=== PATIENT | female | born 1965 | race Caucasian/White ===

== ENCOUNTER 2018-09-07 09:14 | Day surgery (SDC) | payer OTHER ==
[2018-09-07] MEDS ORDERED: LACTATED RINGERS 1,000 ML IV ONE (09:36)
[2018-09-07] MEDS ORDERED: MIDAZOLAM 2 MG/2 ML VIAL IVP ONE (11:15)
[2018-09-07] MEDS ORDERED: fentaNYL 250 MCG/5 ML VIAL IVP ONE (11:15)
[2018-09-07 11:49] VITALS: BP 110/72
== END 2018-09-07 09:15 | disposition home or self-care (01) ==
LOC: SDS 09:14
PROVIDERS: ATTEND Surgery
PROC: 0DJD8ZZ Inspection of Lower Intestinal Tract, Via Natural or Artificial Opening Endoscopic (ICD-10-PCS; principal; 2018-09-07 10:45)
DX: Z12.11 Encounter for screening for malignant neoplasm of colon (principal); K64.8 Other hemorrhoids
CPT/HCPCS: 45378; J3010; J7120

== ENCOUNTER 2019-04-06 15:13 | Outpatient (CLI) | payer OTHER ==
--- NOTE | 2019-04-09 10:22 | Mammography Report ---
Reason: SCREENING MAMMO Procedure Date: 04/06/2019 Accession Number: [id number] / [id number] Procedure: MGN - Screening Mammo Dig Bilat CPT Code: FULL RESULT: EXAM: Screening Mammo Dig Bilat DATE: 04/06/2019 3:45 PM CLINICAL HISTORY: Screening encounter. History of late childbearing. TECHNIQUE: (B) - Bilateral CC and MLO views were obtained. COMPARISON: 02/18/2018 through 11/26/2016. PARENCHYMAL PATTERN: (A) - The breast(s) demonstrate(s) scattered fibroglandular densities. FINDINGS: There are no suspicious masses, calcifications, or areas of distortion. IMPRESSION: Negative examination. BI-RADS category 1. RECOMMENDATION: (ANNUAL) - Recommend routine annual screening mammography. BI-RADS CATEGORY: (1) - Negative. STANDARD QUALIFYING STATEMENTS: 1. This examination was not reviewed with the aid of Computer-Aided Detection (CAD). 2. A negative or benign imaging report should not preclude biopsy if clinically suspicious findings are present. 3. Dense breasts may obscure an underlying neoplasm. 4. This examination was reviewed without the aid of 3D breast imaging (tomosynthesis).
== END 2019-04-06 15:14 | disposition home or self-care (01) ==
LOC: DI.N 15:13
DX: Z12.31 Encounter for screening mammogram for malignant neoplasm of breast (principal)
CPT/HCPCS: 77067

== ENCOUNTER 2020-10-25 14:25 | Outpatient (CLI) | payer OTHER ==
--- NOTE | 2020-10-26 12:20 | Mammography Report ---
BILATERAL DIGITAL SCREENING MAMMOGRAM 3D/2D: 10/25/2020 CLINICAL: Routine screening. Comparison is made to exams dated: 04/06/2019 mammogram - [facility], 02/18/2018 ma mmogram, and 11/26/2016 mammogram - [facility]. There are scattered fibroglandular [place] ents in both breasts. No significant masses, calcifications, or other findings are seen in either breast. There has been no significant interval change. IMPRESSION: NEGATIVE There is no mammographic evidence of malignancy. A 1 year screening mammogram is recommended. This exam was interpreted at Station ID: [id number]. NOTE: For mammograms, a report in lay terms will be sent to the patient. Approximately 15% of breast malignancies will not be visualized mammographically. In the management of a palpable breast mass, a negative mammogram must not discourage biopsy of a clinically suspicious lesion. Electronically Signed By: Rubén Coronado M.D. aty/penrad:10/25/2020 15:03:52 ACR BI-RADS Category 1: Negative 3341F PARENCHYMAL PATTERN: (A) - The breast(s) demonstrate(s) scattered fibroglandular densities. BI-RADS CATEGORY: (1) - 1 RECOMMENDATION: (ANNUAL) - Recommend routine annual screening mammography. [id number] 1 year screening LATERALITY: (B)
== END 2020-10-25 14:26 | disposition home or self-care (01) ==
LOC: DI.N 14:25
DX: Z12.31 Encounter for screening mammogram for malignant neoplasm of breast (principal)

== ENCOUNTER 2022-09-19 16:30 | Outpatient (CLI) | payer OTHER ==
--- NOTE | 2022-09-20 09:26 | XRAY Report ---
PROCEDURE: Finger(s) LT INDICATIONS: CONTUSION OF LEFT LITTLE FINGER WITHOUT DAMAGE TO TECHNIQUE: AP hand, 2 views of the left fifth finger(s) acquired. COMPARISON: None FINDINGS: Bones: No fractures or dislocations. No suspicious bony lesions. Soft tissues: There has been be some mild soft tissue swelling in the region of the DIP joint. IMPRESSION: 1. No evidence for acute osseous abnormality involving the left hand or left fifth finger. 2. Soft tissue swelling in the region of the DIP joint. Reviewed by: Sumit Sampson MD on 09/20/2022 9:25 AM PDT Approved by: Sumit Sampson MD on 09/20/2022 9:25 AM PDT Station ID: [id number]
== END 2022-09-19 16:31 | disposition home or self-care (01) ==
LOC: DI 16:30
PROVIDERS: ATTEND Physician Assistant
DX: S60.052A Contusion of left little finger without damage to nail, initial encounter (principal)